=== PATIENT | female | born 1965 | race Two or more races ===

== ENCOUNTER 2022-06-06 13:06 | Emergency (ER) | payer MEDICAID, OTHER ==
[~2022-06-06] VITALS: Ht 162.6 cm; Wt 63.6 kg
[2022-06-06 16:50] VITALS: BP 139/66
[2022-06-06] MEDS ORDERED: IBUP600T28 PO (17:19)
[2022-06-06] MEDS ORDERED: CYCL-839 PO (17:19)
[2022-06-06] MEDS ORDERED: KETOROLAC TROMETH 30 MG/ML 1ML VIAL IM ONE (17:30)
== END 2022-06-06 17:42 | disposition home or self-care (01) ==
LOC: ER 13:06 → EDBD 13:06 → ER 17:42
DX: S16.1XXA Strain of muscle, fascia and tendon at neck level, initial encounter (principal); S37.92XA Contusion of unspecified urinary and pelvic organ, initial encounter; V43.92XA Unspecified car occupant injured in collision with other type car in traffic accident, initial encounter; Y93.89 Activity, other specified; Y92.89 Other specified places as the place of occurrence of the external cause; Y99.8 Other external cause status
CPT/HCPCS: 72125; 74176; 96372; 99285; J1885